=== PATIENT | male | born 1955 | race Caucasian/White ===

== ENCOUNTER 2016-12-07 17:08 | Observation (INO) | payer MEDICAID ==
[~2016-12-07] VITALS: Ht 177.8 cm; Wt 105.2 kg
[~2016-12-07 17:08] MED LIST: ASPI-496 PO; ATOR40TA78 PO; BUPR-86 PO; CARV12.52 PO; CITA10TA4 PO; CLOP75TA PO; FAMO20TA7 PO; GLIP2.5T3 PO; GLIP5TAB10 PO; HYDR-3144 PO; ISOS30TA19 PO; ISOS30TA8 PO; LISI2.5T PO; LORA0.5T PO; LOSA100T2 PO; LOSA25TA5 PO; MAG30ORA PO; METF850T2 PO; NITR0.4T SL; PANT40TA5 PO; PROP10TA PO; RANO500T2 PO; SERT100T PO; SERT100T5 PO; TAMS0.4C2 PO; TRAZ50TA18 PO
[2016-12-07] MEDS ORDERED: ASPIRIN 81 MG TABLET CHEW PO ONE (17:30)
[2016-12-07] MEDS ORDERED: SODIUM CHLORIDE FLUSH 10ML SYR IVF ONE (17:30)
[2016-12-07] MEDS ORDERED: SERT50TA PO (17:50)
[2016-12-07] MEDS ORDERED: GABA100C8 PO (17:50)
[2016-12-07] MEDS ORDERED: LORA1TAB PO (17:50)
[2016-12-07] MEDS ORDERED: ASPIRIN 81 MG TABLET CHEW ONE (17:51)
[2016-12-07 18:07] LABS: BLOOD UREA NITROGEN 14 mg/dL (7-18)
[2016-12-07 18:13] LABS: ASPARTATE AMINO TRANSFERASE 24 U/L (15-37)
[2016-12-07 18:14] LABS: IS PT STATUS REG ER OR PRE ER? YES
[2016-12-07] MEDS ORDERED: ONDANSETRON 2MG/ML, 2ML IVPush ONE (18:30)
[2016-12-07] MEDS ORDERED: NITROGLYCERIN SINGLE TAB 0.4 MG SL ONE ×2 (18:30→18:45)
[2016-12-07] MEDS ORDERED: morphine SULFATE 10 MG/ML, 1ML IVPush ONE (18:30)
[2016-12-07] MEDS ORDERED: ONDANSETRON 2MG/ML, 2ML ONE (18:45)
[2016-12-07] MEDS ORDERED: SODIUM CHLORIDE FLUSH 10ML SYR IVF PRN (20:00)
[2016-12-07] MEDS ORDERED: morphine SULFATE/PF 1 MG/ML, 10ML IVPush ONE (20:30)
[2016-12-07] MEDS ORDERED: MORPHINE SULFATE 4 MG/ML, 1ML ONE (20:36)
[2016-12-07] MEDS ORDERED: GLUCAGON 1 MG IM PRN (21:00)
[2016-12-07] MEDS ORDERED: NITROGLYCERIN 0.4 MG BOTTLE (25 TABS) SL PRN (21:00)
[2016-12-07] MEDS ORDERED: ZOLPIDEM 5MG TABLET PO PRN (21:00)
[2016-12-07] MEDS ORDERED: LABETALOL 5MG/ML 40ML VIAL IVPush PRN (21:00)
[2016-12-07] MEDS ORDERED: DEXTROSE 4 GM TAB.CHEW PO PRN (21:00)
[2016-12-07] MEDS ORDERED: ONDANSETRON 2MG/ML, 2ML IVPush PRN (21:00)
[2016-12-07] MEDS ORDERED: DOCUSATE 100 MG CAPSULE PO PRN (21:00)
[2016-12-07] MEDS ORDERED: ACETAMINOPHEN 325 MG TABLET PO PRN (21:00)
[2016-12-07] MEDS ORDERED: POLYETHYLENE GLYCOL 17 GM PACKET PO PRN (21:00)
[2016-12-07] MEDS ORDERED: DEXTROSE 50%, 50ML SYRINGE IVPush PRN (21:00)
[2016-12-07] MEDS ORDERED: BISACODYL 10 MG SUPP PR PRN (21:00)
[2016-12-07 21:14] VITALS: BP 126/75
[2016-12-07] MEDS: ATORVASTATIN 40 MG TABLET PO SCH (21:31)
[2016-12-07] MEDS: CARVEDILOL 12.5 MG TABLET PO SCH (21:31)
[2016-12-07] MEDS: ENOXAPARIN 40 MG/0.4 ML SQ SCH (22:22)
[2016-12-07] MEDS: SODIUM CHLORIDE 0.9% 1,000 ML IV SCH (22:22)
[2016-12-07] MEDS: SODIUM CHLORIDE FLUSH 10ML SYR IVF SCH (22:22)
[2016-12-07] MEDS: GABAPENTIN 100 MG CAPSULE PO SCH (22:22)
[2016-12-07] MEDS: INSULIN ASPART 100 UNITS/ML, PEN SQ-INSULIN SCH (22:27)
[2016-12-07] MEDS: PANTOPROZOLE 40MG TABLET PO SCH (22:40)
[2016-12-07] MEDS: TAMSULOSIN 0.4 MG CAP.ER.24H PO SCH (22:40)
[2016-12-08] MEDS ORDERED: NITROGLYCERIN 0.4 MG BOTTLE (25 TABS) SL PRN
[2016-12-08 00:13] LABS: IS PT STATUS REG ER OR PRE ER? NO
[2016-12-08] MEDS: morphine SULFATE 10 MG/ML, 1ML IVPush PRN ×3 (00:24→13:00)
[2016-12-08 03:08] VITALS: BP 106/68
[2016-12-08] MEDS: GABAPENTIN 100 MG CAPSULE PO SCH ×4 (06:23→19:58)
[2016-12-08] MEDS: INSULIN ASPART 100 UNITS/ML, PEN SQ-INSULIN SCH ×4 (07:00→20:02)
[2016-12-08 07:21] VITALS: BP 106/66
[2016-12-08] MEDS: SODIUM CHLORIDE 0.9% 1,000 ML IV SCH (08:00)
[2016-12-08 08:11] LABS: BLOOD UREA NITROGEN 14 mg/dL (7-18)
[2016-12-08 08:19] LABS: IS PT STATUS REG ER OR PRE ER? NO
[2016-12-08] MEDS: LOSARTAN 50MG TABLET PO SCH (08:31)
[2016-12-08] MEDS: LORazepam 1MG TABLET PO SCH (08:31)
[2016-12-08] MEDS: CLOPIDOGREL 75 MG TABLET PO SCH (08:31)
[2016-12-08] MEDS: SERTRALINE 50MG TABLET PO SCH (08:31)
[2016-12-08] MEDS: SODIUM CHLORIDE FLUSH 10ML SYR IVF SCH ×2 (08:31→19:58)
[2016-12-08] MEDS: ASPIRIN 81 MG TABLET EC PO SCH (08:31)
[2016-12-08] MEDS: metFORMIN 850 MG TABLET PO SCH (08:31)
[2016-12-08] MEDS: CARVEDILOL 12.5 MG TABLET PO SCH ×2 (08:31→19:58)
[2016-12-08] MEDS: ISOSORBIDE DINITRATE 30 MG TABLET PO SCH (08:31)
[2016-12-08] MEDS: GLIPizide ER 5 MG TABLET PO SCH (08:32)
[2016-12-08] MEDS ORDERED: KETOROLAC 30 MG/1 ML IVPush ONE (16:00)
[2016-12-08] MEDS ORDERED: METHOCARBAMOL 500 MG TABLET PO PRN (16:00)
[2016-12-08 16:33] VITALS: BP 108/67
[2016-12-08 19:46] VITALS: BP 128/74
[2016-12-08] MEDS: TAMSULOSIN 0.4 MG CAP.ER.24H PO SCH (19:58)
[2016-12-08] MEDS: ATORVASTATIN 40 MG TABLET PO SCH (19:58)
[2016-12-08] MEDS: PANTOPROZOLE 40MG TABLET PO SCH (19:59)
[2016-12-08] MEDS ORDERED: KETOROLAC 30 MG/1 ML IVPush PRN (21:30)
[2016-12-08] MEDS: ENOXAPARIN 40 MG/0.4 ML SQ SCH (22:50)
[2016-12-09 02:24] VITALS: BP 115/74
[2016-12-09] MEDS: INSULIN ASPART 100 UNITS/ML, PEN SQ-INSULIN SCH ×3 (07:00→16:00)
[2016-12-09 08:42] VITALS: BP 130/81
[2016-12-09] MEDS: GLIPizide ER 5 MG TABLET PO SCH ×2 (09:00→09:37)
[2016-12-09] MEDS: SODIUM CHLORIDE FLUSH 10ML SYR IVF SCH (09:37)
[2016-12-09] MEDS: SERTRALINE 50MG TABLET PO SCH (09:37)
[2016-12-09] MEDS: ASPIRIN 81 MG TABLET EC PO SCH (09:37)
[2016-12-09] MEDS: CLOPIDOGREL 75 MG TABLET PO SCH (09:37)
[2016-12-09] MEDS: metFORMIN 850 MG TABLET PO SCH ×2 (09:37→09:42)
[2016-12-09] MEDS: LOSARTAN 50MG TABLET PO SCH (09:38)
[2016-12-09] MEDS: GABAPENTIN 100 MG CAPSULE PO SCH ×3 (09:38→16:33)
[2016-12-09] MEDS ORDERED: LITH300T30 PO (09:45)
[2016-12-09] MEDS: ISOSORBIDE DINITRATE 30 MG TABLET PO SCH (09:51)
[2016-12-09] MEDS: CARVEDILOL 12.5 MG TABLET PO SCH (09:51)
[2016-12-09] MEDS: LORazepam 1MG TABLET PO SCH (09:51)
[2016-12-09 14:10] VITALS: BP 122/73
[2016-12-09] MEDS ORDERED: METH500T7 PO (16:52)
== END 2016-12-09 18:44 | disposition home or self-care (01) ==
LOC: SUATTDRO 20:04 → ED 20:30 → 5SO 20:33
DX: R07.9 Chest pain, unspecified (principal); I25.10 Atherosclerotic heart disease of native coronary artery without angina pectoris; E11.9 Type 2 diabetes mellitus without complications; K82.9 Disease of gallbladder, unspecified; E78.5 Hyperlipidemia, unspecified; I11.9 Hypertensive heart disease without heart failure; F41.9 Anxiety disorder, unspecified; F32.9 Major depressive disorder, single episode, unspecified; N40.0 Benign prostatic hyperplasia without lower urinary tract symptoms; M94.0 Chondrocostal junction syndrome [Tietze]; G62.9 Polyneuropathy, unspecified; I25.2 Old myocardial infarction; Z86.73 Personal history of transient ischemic attack (TIA), and cerebral infarction without residual deficits; Z90.49 Acquired absence of other specified parts of digestive tract; Z95.5 Presence of coronary angioplasty implant and graft; Z80.9 Family history of malignant neoplasm, unspecified
CPT/HCPCS: 36415; 71010; 80048; 80053; 82962; 83036; 83880; 84484; 85025; 85379; 93005; 93306; 96361; 96372; 96374; 96375; 96376; 99285; G0378; J1650; J1885; J2270; J2274; J2405; J7030

== ENCOUNTER 2017-12-20 11:42 | Emergency (ER) | payer MEDICARE ==
[~2017-12-20] VITALS: Ht 177.8 cm; Wt 109.6 kg
[~2017-12-20 11:42] MED LIST changes: +GABA-826 PO; -HYDR-3144 PO; +HYDR-3245 PO; -ISOS30TA19 PO; +ISOS30TA21 PO; +LITH300T30 PO; +LORA1TAB PO; +METH500T7 PO; +SERT50TA PO
[2017-12-20] MEDS ORDERED: SODIUM CHLORIDE FLUSH 10ML SYR IVF ONE (12:30)
[2017-12-20 12:48] LABS: BASOPHILS # (AUTO) 0.02 x10^3/uL (0-0.1); BASOPHILS % (AUTO) 0 % (0-1); EOSINOPHILS # (AUTO) 0.23 x10^3/uL (0-0.4); EOSINOPHILS % (AUTO) 4 % (1-7); LYMPHOCYTES # (AUTO) 1.04 x10^3/uL (1-3.4); LYMPHOCYTES % (AUTO) 18 % (22-44); MD NO; MEAN CORPUSCULAR HEMOGLOBIN 30.2 pg (27.5-34.5); MEAN CORPUSCULAR VOLUME 88.9 fL (81-97); MEAN PLATELET VOLUME 7.4 fL (7.4-10.4); MONOCYTES # (AUTO) 0.42 x10^3/uL (0.2-0.8); MONOCYTES % (AUTO) 7 % (2-9); NEUTROPHILS # (AUTO) 3.98 x10^3/uL (1.8-6.8); NEUTROPHILS % (AUTO) 70 % (42-75); PLATELET COUNT 155 x10^3/uL (130-400); RED BLOOD COUNT 4.63 x10^6/uL (4.38-5.82)
[2017-12-20 13:01] LABS: ALANINE AMINOTRANSFERASE 30 U/L (12-78); ALBUMIN 3.9 g/dL (3.4-5.0); ANION GAP 12 mmol/L (5-15); CALCIUM 9.1 mg/dL (8.5-10.1); CHLORIDE 102 mmol/L (98-107); CREATININE 1.51 mg/dL (0.7-1.3)
[2017-12-20 13:05] LABS: ALKALINE PHOSPHATASE 64 U/L (45-117); BILIRUBIN,TOTAL 1.4 mg/dL (0.2-1.0); TOTAL PROTEIN 6.8 g/dL (6.4-8.2); TROPONIN I < 0.015 ng/mL (0.000-0.045)
[2017-12-20 13:19] VITALS: BP 127/81
== END 2017-12-20 14:10 | disposition home or self-care (01) ==
LOC: ED 14:04
DX: L02.31 Cutaneous abscess of buttock (principal); R53.1 Weakness; N28.9 Disorder of kidney and ureter, unspecified; R06.00 Dyspnea, unspecified; R06.02 Shortness of breath; I10 Essential (primary) hypertension; E78.5 Hyperlipidemia, unspecified; F32.9 Major depressive disorder, single episode, unspecified; I25.110 Atherosclerotic heart disease of native coronary artery with unstable angina pectoris; I25.2 Old myocardial infarction; Z90.49 Acquired absence of other specified parts of digestive tract
CPT/HCPCS: 36415; 71045; 80053; 84484; 85025; 93005; 99285

== ENCOUNTER 2018-02-26 20:22 | Inpatient (IN) | payer MEDICAID, MEDICARE ==
[~2018-02-26] VITALS: Ht 177.8 cm; Wt 108.4 kg
[~2018-02-26 20:22] MED LIST changes: +TRAZ-136 PO; -TRAZ50TA18 PO
[2018-02-26] MEDS ORDERED: NITROGLYCERIN OINT 2%, 1GM TP ONE ×2 (20:49→21:30)
[2018-02-26] MEDS ORDERED: ASPIRIN 81 MG TABLET CHEW ONE (20:49)
[2018-02-26] MEDS ORDERED: SODIUM CHLORIDE FLUSH 10ML SYR IVF ONE (21:00)
[2018-02-26 21:25] LABS: BASOPHILS # (AUTO) 0.02 x10^3/uL (0-0.1); BASOPHILS % (AUTO) 1 % (0-1); EOSINOPHILS # (AUTO) 0.27 x10^3/uL (0-0.4); EOSINOPHILS % (AUTO) 6 % (1-7); LYMPHOCYTES # (AUTO) 1.26 x10^3/uL (1-3.4); LYMPHOCYTES % (AUTO) 27 % (22-44); MD NO; MEAN CORPUSCULAR HEMOGLOBIN 31.4 pg (27.5-34.5); MEAN CORPUSCULAR HGB CONC 34.8 g/dL (33.2-36.2); MEAN CORPUSCULAR VOLUME 90.1 fL (81-97); MEAN PLATELET VOLUME 7.7 fL (7.4-10.4); MONOCYTES # (AUTO) 0.38 x10^3/uL (0.2-0.8); MONOCYTES % (AUTO) 8 % (2-9); NEUTROPHILS % (AUTO) 59 % (42-75); PLATELET COUNT 129 x10^3/uL (130-400); RED BLOOD COUNT 4.44 x10^6/uL (4.38-5.82)
[2018-02-26] MEDS ORDERED: MORPHINE SULFATE 4 MG/ML, 1ML ONE (21:27)
[2018-02-26] MEDS ORDERED: ONDANSETRON ODT 4 MG ONE (21:27)
[2018-02-26] MEDS ORDERED: ASPIRIN 81 MG TABLET CHEW PO ONE (21:30)
[2018-02-26 21:38] LABS: ALANINE AMINOTRANSFERASE 29 U/L (12-78); ALBUMIN 3.8 g/dL (3.4-5.0); ANION GAP 5 mmol/L (5-15); CHLORIDE 108 mmol/L (98-107)
[2018-02-26 21:43] LABS: ALKALINE PHOSPHATASE 56 U/L (45-117); BILIRUBIN,TOTAL 1.1 mg/dL (0.2-1.0); CREATININE 1.19 mg/dL (0.7-1.3); TOTAL PROTEIN 6.6 g/dL (6.4-8.2); TROPONIN I < 0.015 ng/mL (0.000-0.045)
[2018-02-26] MEDS ORDERED: morphine SULFATE 10 MG/ML, 1ML IVPush ONE (22:30)
[2018-02-26] MEDS ORDERED: ONDANSETRON ODT 4 MG PO ONE (22:30)
[2018-02-26 23:35] VITALS: BP 163/90
[2018-02-27] MEDS ORDERED: NITROGLYCERIN 0.4 MG/SPRAY SL PRN (00:30)
[2018-02-27] MEDS ORDERED: NITROGLYCERIN 0.4 MG BOTTLE (25 TABS) SL PRN (00:30)
[2018-02-27 00:40] VITALS: BP 119/69
[2018-02-27 01:47] VITALS: BP 119/71
[2018-02-27] MEDS ORDERED: KETOROLAC 30 MG/1 ML IV PRN (02:00)
[2018-02-27] MEDS ORDERED: METHOCARBAMOL 500 MG TABLET PO PRN (02:00)
[2018-02-27] MEDS: ENOXAPARIN 30 MG/0.3 ML SQ SCH ×2 (02:29→13:26)
[2018-02-27] MEDS: GABAPENTIN 100 MG CAPSULE PO SCH ×4 (06:00→21:01)
[2018-02-27 07:48] VITALS: BP 132/75
[2018-02-27] MEDS: ASPIRIN 81 MG TABLET EC PO SCH (08:30)
[2018-02-27] MEDS: LOSARTAN 50MG TABLET PO SCH (08:30)
[2018-02-27] MEDS: LORazepam 1MG TABLET PO SCH (08:30)
[2018-02-27] MEDS: CLOPIDOGREL 75 MG TABLET PO SCH (08:30)
[2018-02-27] MEDS: CARVEDILOL 12.5 MG TABLET PO SCH ×2 (08:31→21:01)
[2018-02-27] MEDS: ISOSORBIDE DINITRATE 30 MG TABLET PO SCH (08:31)
[2018-02-27] MEDS: SERTRALINE 50MG TABLET PO SCH (08:33)
[2018-02-27 09:32] LABS: ALBUMIN 3.5 g/dL (3.4-5.0); ANION GAP 7 mmol/L (5-15); CALCIUM 8.6 mg/dL (8.5-10.1); CHLORIDE 108 mmol/L (98-107)
[2018-02-27 09:39] LABS: ALANINE AMINOTRANSFERASE 28 U/L (12-78); ALKALINE PHOSPHATASE 52 U/L (45-117); CREATININE 1.15 mg/dL (0.7-1.3); TOTAL PROTEIN 6.2 g/dL (6.4-8.2); TROPONIN I < 0.015 ng/mL (0.000-0.045)
[2018-02-27 13:16] VITALS: BP 116/70
[2018-02-27 15:12] LABS: TROPONIN I < 0.015 ng/mL (0.000-0.045)
[2018-02-27 20:35] VITALS: BP 132/72
[2018-02-27] MEDS ORDERED: PANTOPROZOLE 40MG TABLET PO SCH (21:00)
[2018-02-27] MEDS ORDERED: TRAZODONE 50MG TABLET PO PRN (21:00)
[2018-02-27] MEDS ORDERED: ATORVASTATIN 40 MG TABLET PO SCH (21:00)
[2018-02-27] MEDS ORDERED: TAMSULOSIN 0.4 MG CAP.ER.24H PO SCH (21:00)
[2018-02-27] MEDS: INSULIN LISPRO 100 UNITS/ML, PEN SQ-INSULIN SCH (23:30)
[2018-02-28 00:14] VITALS: BP 116/68
[2018-02-28] MEDS: ENOXAPARIN 30 MG/0.3 ML SQ SCH ×2 (02:46→14:00)
[2018-02-28] MEDS: GABAPENTIN 100 MG CAPSULE PO SCH ×3 (05:10→15:23)
[2018-02-28 05:47] LABS: BASOPHILS # (AUTO) 0.02 x10^3/uL (0-0.1); BASOPHILS % (AUTO) 0 % (0-1); EOSINOPHILS # (AUTO) 0.23 x10^3/uL (0-0.4); EOSINOPHILS % (AUTO) 5 % (1-7); LYMPHOCYTES # (AUTO) 1.21 x10^3/uL (1-3.4); LYMPHOCYTES % (AUTO) 28 % (22-44); MD NO; MEAN CORPUSCULAR HEMOGLOBIN 31.1 pg (27.5-34.5); MEAN CORPUSCULAR HGB CONC 34.3 g/dL (33.2-36.2); MEAN CORPUSCULAR VOLUME 90.6 fL (81-97); MEAN PLATELET VOLUME 7.4 fL (7.4-10.4); MONOCYTES # (AUTO) 0.33 x10^3/uL (0.2-0.8); MONOCYTES % (AUTO) 8 % (2-9); NEUTROPHILS # (AUTO) 2.59 x10^3/uL (1.8-6.8); NEUTROPHILS % (AUTO) 59 % (42-75); PLATELET COUNT 116 x10^3/uL (130-400); RED CELL DISTRIBUTION WIDTH 13.8 % (9.4-14.8)
[2018-02-28 06:52] VITALS: BP 139/79
[2018-02-28] MEDS: INSULIN LISPRO 100 UNITS/ML, PEN SQ-INSULIN SCH ×3 (08:36→16:39)
[2018-02-28] MEDS: LORazepam 1MG TABLET PO SCH (08:45)
[2018-02-28] MEDS: CLOPIDOGREL 75 MG TABLET PO SCH (08:47)
[2018-02-28] MEDS: ASPIRIN 81 MG TABLET EC PO SCH (08:47)
[2018-02-28] MEDS: ISOSORBIDE DINITRATE 30 MG TABLET PO SCH (08:47)
[2018-02-28] MEDS: CARVEDILOL 12.5 MG TABLET PO SCH (08:47)
[2018-02-28] MEDS: SERTRALINE 50MG TABLET PO SCH (08:47)
[2018-02-28] MEDS: LOSARTAN 50MG TABLET PO SCH (08:47)
[2018-02-28 12:57] VITALS: BP 138/78
== END 2018-02-28 18:33 | disposition home or self-care (01) | DRG 303 ==
LOC: ED 20:50 → 5SO 22:55
PROVIDERS: ADMIT Internal Medicine; ATTEND Internal Medicine
DX: I25.10 Atherosclerotic heart disease of native coronary artery without angina pectoris (principal); R17 Unspecified jaundice; I11.9 Hypertensive heart disease without heart failure; E11.42 Type 2 diabetes mellitus with diabetic polyneuropathy; F32.9 Major depressive disorder, single episode, unspecified; F41.9 Anxiety disorder, unspecified; G47.30 Sleep apnea, unspecified; N40.0 Benign prostatic hyperplasia without lower urinary tract symptoms; K21.9 Gastro-esophageal reflux disease without esophagitis; E78.5 Hyperlipidemia, unspecified; E66.9 Obesity, unspecified; D69.6 Thrombocytopenia, unspecified; Z90.49 Acquired absence of other specified parts of digestive tract; Z95.5 Presence of coronary angioplasty implant and graft; I25.2 Old myocardial infarction; Z86.73 Personal history of transient ischemic attack (TIA), and cerebral infarction without residual deficits; Z68.34 Body mass index [BMI] 34.0-34.9, adult; Z79.82 Long term (current) use of aspirin
CPT/HCPCS: 36415; 71045; 80053; 82962; 83690; 84443; 84484; 85025; 85379; 93005; 96374; J1650; J1885; Q0162; J1815; J2270

== ENCOUNTER 2018-06-02 17:45 | Emergency (ER) | payer MEDICAID, MEDICARE ==
[~2018-06-02] VITALS: Ht 177.8 cm; Wt 105.0 kg
[~2018-06-02 17:45] MED LIST changes: -LOSA25TA5 PO; +LOSA25TA6 PO; +METF850T10 PO; -METF850T2 PO
[2018-06-02] MEDS ORDERED: SODIUM CHLORIDE FLUSH 10ML SYR IVF ONE (18:00)
[2018-06-02] MEDS ORDERED: PLEASE ENTER HEIGHT AND WEIGHT MC SCH (18:00)
[2018-06-02 18:32] LABS: BASOPHILS # (AUTO) 0.03 x10^3/uL (0-0.1); BASOPHILS % (AUTO) 1 % (0-1); EOSINOPHILS # (AUTO) 0.53 x10^3/uL (0-0.4); EOSINOPHILS % (AUTO) 10 % (1-7); LYMPHOCYTES # (AUTO) 1.68 x10^3/uL (1-3.4); LYMPHOCYTES % (AUTO) 30 % (22-44); MD NO; MEAN CORPUSCULAR HEMOGLOBIN 31.3 pg (27.5-34.5); MEAN CORPUSCULAR HGB CONC 34.4 g/dL (33.2-36.2); MEAN CORPUSCULAR VOLUME 90.8 fL (81-97); MONOCYTES # (AUTO) 0.38 x10^3/uL (0.2-0.8); MONOCYTES % (AUTO) 7 % (2-9); NEUTROPHILS # (AUTO) 2.91 x10^3/uL (1.8-6.8); NEUTROPHILS % (AUTO) 53 % (42-75); PLATELET COUNT 163 x10^3/uL (130-400); RED BLOOD COUNT 4.47 x10^6/uL (4.38-5.82); RED CELL DISTRIBUTION WIDTH 14.3 % (9.4-14.8)
[2018-06-02 18:44] LABS: ALBUMIN 3.5 g/dL (3.4-5.0); ANION GAP 11 mmol/L (5-15); CALCIUM 8.8 mg/dL (8.5-10.1); CHLORIDE 109 mmol/L (98-107)
[2018-06-02 18:49] LABS: ALKALINE PHOSPHATASE 63 U/L (45-117); CREATININE 0.99 mg/dL (0.7-1.3); TOTAL PROTEIN 6.6 g/dL (6.4-8.2); TROPONIN I < 0.015 ng/mL (0.000-0.045)
[2018-06-02 18:55] LABS: ALANINE AMINOTRANSFERASE 29 U/L (12-78)
[2018-06-02] MEDS ORDERED: LORazepam 1MG TABLET ONE (18:56)
[2018-06-02] MEDS ORDERED: LORazepam 1MG TABLET PO ONE (19:00)
[2018-06-02 21:01] VITALS: BP 129/66
== END 2018-06-02 21:13 | disposition home or self-care (01) ==
LOC: ED 19:07
DX: R07.89 Other chest pain (principal); R11.2 Nausea with vomiting, unspecified; I25.10 Atherosclerotic heart disease of native coronary artery without angina pectoris; I25.2 Old myocardial infarction; E78.5 Hyperlipidemia, unspecified; E11.9 Type 2 diabetes mellitus without complications; I10 Essential (primary) hypertension
CPT/HCPCS: 36415; 71045; 80053; 83690; 83880; 84484; 85025; 93005; 99285

== ENCOUNTER 2018-10-19 07:34 | Inpatient (IN) | payer MEDICARE, MEDICAID ==
[~2018-10-19] VITALS: Ht 177.8 cm; Wt 109.7 kg
[~2018-10-19 07:34] MED LIST changes: +LOSA25TA25 PO; -LOSA25TA6 PO; -PROP10TA PO; +PROP10TA16 PO; +SERT100T32 PO; -SERT100T5 PO; -TRAZ-136 PO; +TRAZ50TA66 PO
--- NOTE | 2018-10-19 07:34 | NUR ---
QUINN from home c/o SOB, dizziness, NV, "I don't feel good, I think I had a stroke last night. I didn't come in because I didn't want to. 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 sitter in view.
[2018-10-19] MEDS ORDERED: LORazepam 1MG TABLET PO ONE (08:00)
[2018-10-19] MEDS ORDERED: LORazepam 1MG TABLET ONE (08:14)
--- NOTE | 2018-10-19 08:25 | NUR ---
pt valuables given to security- receipt placed in chart; remaining pt belongings in bags x2 placed in locker.
[2018-10-19 08:27] LABS: BASOPHILS # (AUTO) 0.04 x10^3/uL (0-0.1); BASOPHILS % (AUTO) 1 % (0-1); EOSINOPHILS # (AUTO) 0.21 x10^3/uL (0-0.4); EOSINOPHILS % (AUTO) 4 % (1-7); LYMPHOCYTES # (AUTO) 1.23 x10^3/uL (1-3.4); LYMPHOCYTES % (AUTO) 20 % (22-44); MD NO; MEAN CORPUSCULAR HGB CONC 34.7 g/dL (33.2-36.2); MEAN CORPUSCULAR VOLUME 89.2 fL (81-97); MEAN PLATELET VOLUME 6.7 fL (7.4-10.4); MONOCYTES # (AUTO) 0.33 x10^3/uL (0.2-0.8); MONOCYTES % (AUTO) 5 % (2-9); NEUTROPHILS # (AUTO) 4.25 x10^3/uL (1.8-6.8); NEUTROPHILS % (AUTO) 70 % (42-75); PLATELET COUNT 207 x10^3/uL (130-400); RED BLOOD COUNT 4.28 x10^6/uL (4.38-5.82); RED CELL DISTRIBUTION WIDTH 14.3 % (9.4-14.8)
[2018-10-19 08:39] LABS: ALANINE AMINOTRANSFERASE 41 U/L (12-78); ALBUMIN 3.7 g/dL (3.4-5.0); ANION GAP 15 mmol/L (5-15); CALCIUM 8.4 mg/dL (8.5-10.1); CHLORIDE 97 mmol/L (98-107); CREATININE 1.58 mg/dL (0.7-1.3)
[2018-10-19 08:40] LABS: AMPHETAMINE SCREEN, URINE Negative (Negative); BARBITURATE SCREEN, URINE Negative (Negative); BENZODIAZEPINE SCREEN, URINE Negative (Negative); CANNABINOID SCREEN, URINE Negative (Negative); COCAINE SCREEN, URINE Negative (Negative); METHADONE SCREEN, URINE Negative (Negative); OPIATE SCREEN, URINE Negative (Negative)
[2018-10-19 08:44] LABS: ACETAMINOPHEN < 2 mcg/mL (10-30); ALKALINE PHOSPHATASE 61 U/L (45-117); BILIRUBIN,TOTAL 2.2 mg/dL (0.2-1.0); SALICYLATE LEVEL < 1.7 mg/dL (2.8-20.0); TOTAL PROTEIN 6.2 g/dL (6.4-8.2); TROPONIN I < 0.015 ng/mL (0.000-0.045)
[2018-10-19] MEDS ORDERED: SODIUM CHLORIDE 0.9% 1,000ML IVBOLUS ONE ×2 (09:00→10:00)
--- NOTE | 2018-10-19 09:03 | NUR ---
pt upright on gurney awake & moaning but will not elaborate on reason but otherwise cooperative, NAD/VSS, PA aware of pt status, comfort measures provided, sitter in view.
--- NOTE | 2018-10-19 09:50 | NUR ---
pt transferred to room 40 from Tr01 for pt safety, will continue to monitor VS.
[2018-10-19] MEDS ORDERED: LORazepam 2 MG/ML, 1ML IVPush ONE (10:00)
[2018-10-19 10:01] LABS: ACETONE, SERUM Negative (Negative)
--- NOTE | 2018-10-19 10:02 | NUR ---
pt remains upright on gurney awake & moaning stating "I don't feel like myself, very strange, not taking my meds didn't work out for me" but otherwise cooperative, NAD/VSS, PA aware of pt status, comfort measures provided, pt remains in safe environment, sitter in view.
[2018-10-19] MEDS ORDERED: LORazepam 2 MG/ML, 1ML ONE (10:04)
--- NOTE | 2018-10-19 10:13 | NUR ---
ERP updated pt on POC
[2018-10-19] MEDS ORDERED: TRAZ50TA66 PO (10:36)
[2018-10-19] MEDS ORDERED: ALBU18HF INH (10:36)
[2018-10-19] MEDS ORDERED: MIRT15TA4 PO (10:36)
[2018-10-19] MEDS ORDERED: FLUT1AER7 INH (10:36)
[2018-10-19] MEDS ORDERED: BUSP10TA PO (10:36)
[2018-10-19] MEDS ORDERED: PANTOPRAZOLE 40 MG IV ONE (10:56)
[2018-10-19] MEDS ORDERED: THIAMINE 100MG TABLET ONE (10:56)
--- NOTE | 2018-10-19 10:56 | NUR ---
CT ON HOLD; RN AWARE
[2018-10-19] MEDS ORDERED: ONDANSETRON ODT 4 MG PO PRN (11:00)
[2018-10-19] MEDS ORDERED: LABETALOL 5MG/ML, 20ML IVPush PRN (11:00)
[2018-10-19] MEDS ORDERED: LORazepam 1MG TABLET PO PRN ×4 (11:00)
[2018-10-19] MEDS ORDERED: LORazepam 2 MG/ML, 1ML IV PRN ×5 (11:00)
--- NOTE | 2018-10-19 11:00 | NUR ---
pt upright on gurney awake, moaning & cooperative, NAD/VSS, comfort measures provided, pt remains in safe environment, sitter in view.
[2018-10-19] MEDS: THIAMINE 100MG TABLET PO SCH (11:06)
[2018-10-19] MEDS: PANTOPRAZOLE 40 MG IV IVPush SCH (11:06)
[2018-10-19 11:07] LABS: FREE T4 (FREE THYROXINE) 1.28 ng/dL (0.76-1.46)
--- NOTE | 2018-10-19 11:13 | NUR ---
[facility] at for consult
--- NOTE | 2018-10-19 11:35 | NUR ---
Pt to be admitted to [facility], room 490-2. Report called to Fabiana.
[2018-10-19] MEDS: FOLIC ACID 1 MG TABLET PO SCH (11:41)
[2018-10-19] MEDS ORDERED: GLUCAGON 1 MG IM PRN (12:00)
[2018-10-19] MEDS ORDERED: DEXTROSE 4 GM TAB.CHEW PO PRN (12:00)
[2018-10-19] MEDS ORDERED: DEXTROSE 50%, 50ML SYRINGE IVPush PRN (12:00)
[2018-10-19 12:25] VITALS: BP 117/69
[2018-10-19 12:53] LABS: HEMOGLOBIN A1C 6.3 % (4.2-6.3)
[2018-10-19 13:07] LABS: ALBUMIN 3.4 g/dL (3.4-5.0); ANION GAP 12 mmol/L (5-15); CHLORIDE 104 mmol/L (98-107); CREATININE 1.28 mg/dL (0.7-1.3)
[2018-10-19] MEDS: SODIUM CHLORIDE 0.9% 1,000 ML IV SCH ×2 (13:38→23:45)
[2018-10-19 14:27] VITALS: BP 145/76
[2018-10-19 17:00] LABS: TROPONIN I < 0.015 ng/mL (0.000-0.045)
[2018-10-19] MEDS: GABAPENTIN 100 MG CAPSULE PO PRN (17:08)
[2018-10-19] MEDS: INSULIN LISPRO 100 UNITS/ML, PEN SQ-INSULIN SCH ×2 (17:11→21:00)
[2018-10-19 20:00] VITALS: BP 151/75
[2018-10-19] MEDS: ATORVASTATIN 10 MG TABLET PO SCH (20:09)
[2018-10-19] MEDS: MIRTAZAPINE 15 MG TABLET PO SCH (20:09)
[2018-10-19] MEDS: BUSPIRONE 10 MG TABLET PO SCH (20:09)
[2018-10-19] MEDS: CARVEDILOL 12.5 MG TABLET PO SCH (20:10)
[2018-10-19] MEDS: SODIUM CHLORIDE FLUSH 10ML SYR IVF SCH (20:11)
[2018-10-20 02:20] VITALS: BP 128/65
[2018-10-20 05:43] LABS: ALBUMIN 3.4 g/dL (3.4-5.0); CALCIUM 8.2 mg/dL (8.5-10.1)
[2018-10-20 05:54] LABS: ALANINE AMINOTRANSFERASE 33 U/L (12-78); ALKALINE PHOSPHATASE 45 U/L (45-117); ANION GAP 6 mmol/L (5-15); BILIRUBIN,TOTAL 1.8 mg/dL (0.2-1.0); CREATININE 1.13 mg/dL (0.7-1.3); TOTAL PROTEIN 5.6 g/dL (6.4-8.2)
[2018-10-20 05:56] LABS: CHLORIDE 112 mmol/L (98-107)
[2018-10-20 06:03] LABS: BASOPHILS # (AUTO) 0.01 x10^3/uL (0-0.1); BASOPHILS % (AUTO) 0 % (0-1); EOSINOPHILS # (AUTO) 0.13 x10^3/uL (0-0.4); EOSINOPHILS % (AUTO) 3 % (1-7); LYMPHOCYTES # (AUTO) 0.74 x10^3/uL (1-3.4); LYMPHOCYTES % (AUTO) 19 % (22-44); MD NO; MEAN CORPUSCULAR HEMOGLOBIN 31.2 pg (27.5-34.5); MEAN CORPUSCULAR HGB CONC 34.7 g/dL (33.2-36.2); MEAN PLATELET VOLUME 6.8 fL (7.4-10.4); MONOCYTES # (AUTO) 0.31 x10^3/uL (0.2-0.8); MONOCYTES % (AUTO) 8 % (2-9); NEUTROPHILS # (AUTO) 2.66 x10^3/uL (1.8-6.8); NEUTROPHILS % (AUTO) 69 % (42-75); PLATELET COUNT 134 x10^3/uL (130-400); RED BLOOD COUNT 3.85 x10^6/uL (4.38-5.82); RED CELL DISTRIBUTION WIDTH 14.6 % (9.4-14.8)
[2018-10-20] MEDS: DEXTROSE 5% 1,000 ML IV SCH ×2 (06:35→20:40)
[2018-10-20] MEDS: PANTOPRAZOLE 40 MG IV IVPush SCH (07:25)
[2018-10-20] MEDS: INSULIN LISPRO 100 UNITS/ML, PEN SQ-INSULIN SCH ×4 (07:26→20:32)
[2018-10-20 08:48] VITALS: BP 148/84
[2018-10-20] MEDS: THIAMINE 100MG TABLET PO SCH (08:51)
[2018-10-20] MEDS: FOLIC ACID 1 MG TABLET PO SCH (08:51)
[2018-10-20] MEDS: CLOPIDOGREL 75 MG TABLET PO SCH (08:51)
[2018-10-20] MEDS: ASPIRIN 81 MG TABLET EC PO SCH (08:51)
[2018-10-20] MEDS: BUSPIRONE 10 MG TABLET PO SCH ×2 (08:51→20:40)
[2018-10-20] MEDS: CARVEDILOL 12.5 MG TABLET PO SCH ×2 (08:52→20:40)
[2018-10-20] MEDS: SODIUM CHLORIDE FLUSH 10ML SYR IVF SCH ×2 (08:53→20:41)
[2018-10-20] MEDS: ISOSORBIDE DINITRATE 30 MG TABLET PO SCH (08:53)
[2018-10-20] MEDS: ONDANSETRON 2MG/ML, 2ML IVPush PRN ×2 (10:47→21:52)
[2018-10-20] MEDS: LORazepam 0.5MG TABLET PO PRN ×3 (10:58→21:02)
[2018-10-20 11:46] LABS: ALBUMIN 3.2 g/dL (3.4-5.0); ANION GAP 6 mmol/L (5-15); CALCIUM 8.2 mg/dL (8.5-10.1); CHLORIDE 110 mmol/L (98-107); CREATININE 1.02 mg/dL (0.7-1.3)
[2018-10-20 15:08] VITALS: BP 154/82
[2018-10-20 16:00] LABS: ANION GAP 9 mmol/L (5-15); CALCIUM 8.6 mg/dL (8.5-10.1); CHLORIDE 110 mmol/L (98-107)
[2018-10-20 16:01] LABS: CREATININE 1.12 mg/dL (0.7-1.3)
[2018-10-20] MEDS: NICOTINE 14MG/24 HR PATCH.TD24 TD SCH (16:27)
[2018-10-20 19:44] VITALS: BP 150/83
[2018-10-20] MEDS: TAMSULOSIN 0.4 MG CAP.ER.24H PO SCH (20:39)
[2018-10-20] MEDS: ATORVASTATIN 10 MG TABLET PO SCH (20:39)
[2018-10-20] MEDS: MIRTAZAPINE 15 MG TABLET PO SCH (20:40)
[2018-10-20] MEDS: GABAPENTIN 100 MG CAPSULE PO PRN (21:02)
[2018-10-21 00:37] VITALS: BP 155/80
[2018-10-21] MEDS: TRAZODONE 100MG TABLET PO PRN (02:17)
[2018-10-21] MEDS: LORazepam 0.5MG TABLET PO PRN ×2 (02:18→10:55)
[2018-10-21 05:23] LABS: BASOPHILS # (AUTO) 0.03 x10^3/uL (0-0.1); BASOPHILS % (AUTO) 1 % (0-1); EOSINOPHILS # (AUTO) 0.11 x10^3/uL (0-0.4); EOSINOPHILS % (AUTO) 4 % (1-7); LYMPHOCYTES # (AUTO) 0.81 x10^3/uL (1-3.4); LYMPHOCYTES % (AUTO) 27 % (22-44); MD NO; MEAN CORPUSCULAR HEMOGLOBIN 31.3 pg (27.5-34.5); MEAN CORPUSCULAR HGB CONC 34.4 g/dL (33.2-36.2); MEAN CORPUSCULAR VOLUME 90.9 fL (81-97); MEAN PLATELET VOLUME 7.3 fL (7.4-10.4); MONOCYTES # (AUTO) 0.23 x10^3/uL (0.2-0.8); MONOCYTES % (AUTO) 8 % (2-9); NEUTROPHILS # (AUTO) 1.87 x10^3/uL (1.8-6.8); NEUTROPHILS % (AUTO) 61 % (42-75); PLATELET COUNT 116 x10^3/uL (130-400)
[2018-10-21 05:25] LABS: ALBUMIN 3.2 g/dL (3.4-5.0); ANION GAP 6 mmol/L (5-15); CALCIUM 8.2 mg/dL (8.5-10.1); CHLORIDE 110 mmol/L (98-107)
[2018-10-21 05:33] LABS: ALANINE AMINOTRANSFERASE 29 U/L (12-78); ALKALINE PHOSPHATASE 61 U/L (45-117); BILIRUBIN,TOTAL 1.1 mg/dL (0.2-1.0); TOTAL PROTEIN 5.5 g/dL (6.4-8.2)
[2018-10-21] MEDS: PANTOPROZOLE 40MG TABLET PO SCH (05:45)
[2018-10-21] MEDS: FOLIC ACID 1 MG TABLET PO SCH (08:36)
[2018-10-21] MEDS: THIAMINE 100MG TABLET PO SCH (08:36)
[2018-10-21] MEDS: BUSPIRONE 10 MG TABLET PO SCH ×2 (08:36→20:21)
[2018-10-21] MEDS: ISOSORBIDE DINITRATE 30 MG TABLET PO SCH (08:36)
[2018-10-21] MEDS: CARVEDILOL 12.5 MG TABLET PO SCH ×2 (08:36→20:21)
[2018-10-21] MEDS: CLOPIDOGREL 75 MG TABLET PO SCH (08:36)
[2018-10-21] MEDS: ASPIRIN 81 MG TABLET EC PO SCH (08:36)
[2018-10-21] MEDS: INSULIN LISPRO 100 UNITS/ML, PEN SQ-INSULIN SCH ×4 (08:37→20:20)
[2018-10-21] MEDS: DEXTROSE 5% 1,000 ML IV SCH ×2 (08:42→22:58)
[2018-10-21] MEDS: SODIUM CHLORIDE FLUSH 10ML SYR IVF SCH ×2 (08:42→20:25)
[2018-10-21 09:00] VITALS: BP 127/70
[2018-10-21 14:56] VITALS: BP 136/76
[2018-10-21] MEDS: NICOTINE 14MG/24 HR PATCH.TD24 TD SCH ×2 (16:00→20:24)
[2018-10-21] MEDS: ONDANSETRON 2MG/ML, 2ML IVPush PRN (16:59)
[2018-10-21 18:04] LABS: CLOSTRIDIUM DIFFICILE ANTIGEN NEGATIVE; CLOSTRIDIUM DIFFICILE TOXIN NEGATIVE (Negative)
[2018-10-21 20:00] VITALS: BP 159/79
[2018-10-21] MEDS: TAMSULOSIN 0.4 MG CAP.ER.24H PO SCH (20:21)
[2018-10-21] MEDS: GABAPENTIN 100 MG CAPSULE PO PRN (20:21)
[2018-10-21] MEDS: MIRTAZAPINE 15 MG TABLET PO SCH (20:22)
[2018-10-21] MEDS: ATORVASTATIN 10 MG TABLET PO SCH (20:22)
[2018-10-22] MEDS: TRAZODONE 100MG TABLET PO PRN ×2 (01:06→22:07)
[2018-10-22 01:08] VITALS: BP 159/82
[2018-10-22 05:11] VITALS: BP 164/98
[2018-10-22] MEDS: PANTOPROZOLE 40MG TABLET PO SCH (05:12)
[2018-10-22] MEDS: LORazepam 0.5MG TABLET PO PRN ×3 (05:57→22:12)
[2018-10-22 06:50] LABS: TROPONIN I < 0.015 ng/mL (0.000-0.045)
[2018-10-22] MEDS: INSULIN LISPRO 100 UNITS/ML, PEN SQ-INSULIN SCH ×4 (07:00→22:08)
[2018-10-22 08:02] VITALS: BP 100/64
[2018-10-22] MEDS: CARVEDILOL 12.5 MG TABLET PO SCH ×2 (08:49→21:00)
[2018-10-22 09:50] VITALS: BP 147/83
[2018-10-22] MEDS: SODIUM CHLORIDE FLUSH 10ML SYR IVF SCH ×2 (09:53→22:15)
[2018-10-22] MEDS: BUSPIRONE 10 MG TABLET PO SCH ×2 (09:53→22:06)
[2018-10-22] MEDS: ISOSORBIDE DINITRATE 30 MG TABLET PO SCH (09:54)
[2018-10-22] MEDS: CLOPIDOGREL 75 MG TABLET PO SCH (09:54)
[2018-10-22] MEDS: THIAMINE 100MG TABLET PO SCH (09:54)
[2018-10-22] MEDS: ASPIRIN 81 MG TABLET EC PO SCH (09:55)
[2018-10-22] MEDS: FOLIC ACID 1 MG TABLET PO SCH (09:55)
[2018-10-22] MEDS: DEXTROSE 5% 1,000 ML IV SCH (11:59)
[2018-10-22 12:25] LABS: TROPONIN I < 0.015 ng/mL (0.000-0.045)
[2018-10-22 12:32] VITALS: BP 111/78
[2018-10-22] MEDS: NICOTINE 14MG/24 HR PATCH.TD24 TD SCH (17:19)
[2018-10-22 18:21] LABS: TROPONIN I < 0.015 ng/mL (0.000-0.045)
[2018-10-22 19:32] VITALS: BP 139/81
[2018-10-22] MEDS: ATORVASTATIN 10 MG TABLET PO SCH (22:05)
[2018-10-22] MEDS: GABAPENTIN 100 MG CAPSULE PO PRN (22:06)
[2018-10-22] MEDS: TAMSULOSIN 0.4 MG CAP.ER.24H PO SCH (22:11)
[2018-10-22] MEDS: MIRTAZAPINE 15 MG TABLET PO SCH (22:14)
[2018-10-22] MEDS: ONDANSETRON 2MG/ML, 2ML IVPush PRN (22:57)
[2018-10-22] MEDS ORDERED: NITR0.6T4 SL (23:26)
[2018-10-23] MEDS ORDERED: NITROGLYCERIN 0.4 MG BOTTLE (25 TABS) SL PRN
[2018-10-23] MEDS: GABAPENTIN 100 MG CAPSULE PO PRN (00:17)
[2018-10-23] MEDS ORDERED: KETOROLAC 30 MG/1 ML IVPush ONE (01:00)
[2018-10-23 01:10] VITALS: BP 122/73
[2018-10-23] MEDS: DEXTROSE 5% 1,000 ML IV SCH (01:24)
[2018-10-23 07:26] VITALS: BP 145/82
[2018-10-23] MEDS: CARVEDILOL 12.5 MG TABLET PO SCH (09:00)
[2018-10-23] MEDS ORDERED: LOSARTAN 50MG TABLET PO SCH (09:00)
[2018-10-23] MEDS: INSULIN LISPRO 100 UNITS/ML, PEN SQ-INSULIN SCH ×2 (09:32→13:11)
[2018-10-23] MEDS: SODIUM CHLORIDE FLUSH 10ML SYR IVF SCH (09:33)
[2018-10-23] MEDS: BUSPIRONE 10 MG TABLET PO SCH (09:33)
[2018-10-23] MEDS: THIAMINE 100MG TABLET PO SCH (09:33)
[2018-10-23] MEDS: CLOPIDOGREL 75 MG TABLET PO SCH (09:34)
[2018-10-23] MEDS: FOLIC ACID 1 MG TABLET PO SCH (09:34)
[2018-10-23] MEDS: ISOSORBIDE DINITRATE 30 MG TABLET PO SCH (09:34)
[2018-10-23] MEDS: PANTOPROZOLE 40MG TABLET PO SCH (09:34)
[2018-10-23] MEDS: ASPIRIN 81 MG TABLET EC PO SCH (09:34)
[2018-10-23 12:45] VITALS: BP 145/72
== END 2018-10-23 16:33 | disposition home or self-care (01) | DRG 432 ==
LOC: ED 09:25 → EDIP 10:14 → 4EST 12:03 → 4WST 12:30 → 4EST 12:31 → DCLOUNGE 10-23 16:25
PROVIDERS: ADMIT Hospitalist; ATTEND Hospitalist
DX: K70.10 Alcoholic hepatitis without ascites (principal); N17.0 Acute kidney failure with tubular necrosis; E87.1 Hypo-osmolality and hyponatremia; E87.2 Acidosis; R45.851 Suicidal ideations; E11.9 Type 2 diabetes mellitus without complications; E78.5 Hyperlipidemia, unspecified; E86.0 Dehydration; E86.1 Hypovolemia; F10.229 Alcohol dependence with intoxication, unspecified; F41.1 Generalized anxiety disorder; F41.8 Other specified anxiety disorders; G89.29 Other chronic pain; I11.9 Hypertensive heart disease without heart failure; I25.10 Atherosclerotic heart disease of native coronary artery without angina pectoris; I25.2 Old myocardial infarction; K21.9 Gastro-esophageal reflux disease without esophagitis; K76.0 Fatty (change of) liver, not elsewhere classified; N40.0 Benign prostatic hyperplasia without lower urinary tract symptoms; Z80.9 Family history of malignant neoplasm, unspecified; Z86.73 Personal history of transient ischemic attack (TIA), and cerebral infarction without residual deficits; Z95.5 Presence of coronary angioplasty implant and graft
CPT/HCPCS: 36415; 70450; 71046; 74177; 80048; 80053; 80307; 80329; 82010; 82040; 82962; 83036; 83605; 83690; 83735; 83880; 84100; 84145; 84439; 84443; 84484; 85025; 87324; 93005; 93306; 96361; 96374; 99285; G0378; J1885; J2405; J7070; C9113; G0480; J1815; J2060; J7030

== ENCOUNTER 2018-11-14 18:36 | Emergency (ER) | payer MEDICARE, MEDICAID ==
[~2018-11-14] VITALS: Ht 177.8 cm; Wt 105.0 kg
[~2018-11-14 18:36] MED LIST changes: +ALBU18HF INH; +BUSP10TA PO; +FLUT1AER7 INH; +MIRT15TA4 PO; +NITR0.6T4 SL
[2018-11-14] MEDS ORDERED: ACETAMINOPHEN 500 MG TABLET PO ONE (19:00)
--- NOTE | 2018-11-14 19:00 | NUR ---
PT TO RADIOLOGY
[2018-11-14] MEDS ORDERED: BACITRACIN ZINC OINT 500U/GM, 0.9 GM ONE (19:43)
--- NOTE | 2018-11-14 20:00 | NUR ---
[place] [employer] AT BEDSIDE
[2018-11-14 20:29] VITALS: BP 125/78
== END 2018-11-14 20:31 | disposition home or self-care (01) ==
LOC: ED 19:33
DX: S50.12XA Contusion of left forearm, initial encounter (principal); F41.1 Generalized anxiety disorder; F32.9 Major depressive disorder, single episode, unspecified; E78.5 Hyperlipidemia, unspecified; I11.9 Hypertensive heart disease without heart failure; I25.2 Old myocardial infarction; I25.10 Atherosclerotic heart disease of native coronary artery without angina pectoris; Z90.49 Acquired absence of other specified parts of digestive tract; Z86.73 Personal history of transient ischemic attack (TIA), and cerebral infarction without residual deficits; W01.0XXA Fall on same level from slipping, tripping and stumbling without subsequent striking against object, initial encounter; Y93.89 Activity, other specified; Y92.009 Unspecified place in unspecified non-institutional (private) residence as the place of occurrence of the external cause; Y99.8 Other external cause status
CPT/HCPCS: 99283

== ENCOUNTER 2019-02-04 16:17 | Inpatient (IN) | payer MEDICAID, MEDICARE, OTHER ==
[~2019-02-04] VITALS: Ht 177.8 cm; Wt 104.8 kg
[2019-02-06 14:17] VITALS: BP 127/76
== END 2019-02-06 17:32 | disposition home or self-care (01) | DRG 69 ==
LOC: ED 17:31 → CCU 17:44 → 4WST 02-05 11:26
PROVIDERS: ADMIT Internal Medicine; ATTEND Internal Medicine
DX: G45.9 Transient cerebral ischemic attack, unspecified (principal); E87.1 Hypo-osmolality and hyponatremia; I50.30 Unspecified diastolic (congestive) heart failure; E87.0 Hyperosmolality and hypernatremia; G81.94 Hemiplegia, unspecified affecting left nondominant side; D69.6 Thrombocytopenia, unspecified; E11.9 Type 2 diabetes mellitus without complications; E78.5 Hyperlipidemia, unspecified; E87.5 Hyperkalemia; F32.9 Major depressive disorder, single episode, unspecified; K21.9 Gastro-esophageal reflux disease without esophagitis; N40.0 Benign prostatic hyperplasia without lower urinary tract symptoms; R29.810 Facial weakness; F41.1 Generalized anxiety disorder; F45.9 Somatoform disorder, unspecified; R29.709 NIHSS score 9; Z53.29 Procedure and treatment not carried out because of patient's decision for other reasons; I11.0 Hypertensive heart disease with heart failure; I25.10 Atherosclerotic heart disease of native coronary artery without angina pectoris; I25.2 Old myocardial infarction; Z72.0 Tobacco use; Z80.9 Family history of malignant neoplasm, unspecified; Z86.73 Personal history of transient ischemic attack (TIA), and cerebral infarction without residual deficits; Z90.49 Acquired absence of other specified parts of digestive tract; Z95.5 Presence of coronary angioplasty implant and graft; Z82.5 Family history of asthma and other chronic lower respiratory diseases; Z81.8 Family history of other mental and behavioral disorders; Z80.8 Family history of malignant neoplasm of other organs or systems; Z79.84 Long term (current) use of oral hypoglycemic drugs
CPT/HCPCS: 36415; 70450; 70551; 80048; 80053; 80061; 81003; 82040; 82962; 83036; 84484; 85025; 85610; 85730; 87081; 93005; 93306; 93880; 94640; G0378; J2405; J7613; J7626; J7030

== ENCOUNTER 2019-09-14 19:36 | Emergency (ER) | payer MEDICARE, OTHER ==
[~2019-09-14] VITALS: Ht 177.8 cm; Wt 110.0 kg
[~2019-09-14 19:36] MED LIST changes: +ATOR40TA PO; +FLUO20CA23 PO; +GABA100C PO; +ISOS10TA6 PO; +LOSA50TA14 PO; +MIRT-34 PO; -MIRT15TA4 PO; -NITR0.4T SL; +NITR0.4T41 SL
--- NOTE | 2019-09-14 19:54 | NUR ---
pt biba from [facility]. c/o sob/cp started 1844 while doing nothing. initially hypertensive 196/98 w/ 7/10 throbbing cp. concerend bc hx 5 mis. 1 nitro brought bp down to 130s systolic. pain now 12/25. SR on ecg. a&ox4 gcs 15. occasional cough. lungs ctab. quit drinking 10 months ago. 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 report to aide porras. as
[2019-09-14] MEDS ORDERED: MAALOX/HYOSCYAMINE/LIDOCAINE 45 ML BTL PO ONE (20:00)
[2019-09-14] MEDS ORDERED: SODIUM CHLORIDE FLUSH 10ML SYR IVF ONE (20:00)
[2019-09-14 20:06] LABS: BASOPHILS # (AUTO) 0.02 x10^3/uL (0-0.1); BASOPHILS % (AUTO) 1 % (0-1); EOSINOPHILS # (AUTO) 0.12 x10^3/uL (0-0.4); EOSINOPHILS % (AUTO) 4 % (1-7); LYMPHOCYTES # (AUTO) 0.88 x10^3/uL (1-3.4); LYMPHOCYTES % (AUTO) 25 % (22-44); MD NO; MEAN CORPUSCULAR HEMOGLOBIN 30.4 pg (27.5-34.5); MEAN CORPUSCULAR HGB CONC 34.5 g/dL (33.2-36.2); MEAN CORPUSCULAR VOLUME 88.1 fL (81-97); MEAN PLATELET VOLUME 7.3 fL (7.4-10.4); MONOCYTES # (AUTO) 0.29 x10^3/uL (0.2-0.8); MONOCYTES % (AUTO) 8 % (2-9); NEUTROPHILS # (AUTO) 2.23 x10^3/uL (1.8-6.8); NEUTROPHILS % (AUTO) 63 % (42-75); PLATELET COUNT 180 x10^3/uL (130-400); RED BLOOD COUNT 3.73 x10^6/uL (4.38-5.82); RED CELL DISTRIBUTION WIDTH 13.6 % (9.4-14.8)
[2019-09-14] MEDS ORDERED: METF500T17 PO (20:06)
[2019-09-14] MEDS ORDERED: TOPI25CA3 PO (20:08)
[2019-09-14] MEDS ORDERED: METH4TAB6 PO (20:09)
[2019-09-14] MEDS ORDERED: MAALOX/HYOSCYAMINE/LIDOCAINE 45 ML BTL ONE (20:13)
[2019-09-14 20:15] LABS: ALANINE AMINOTRANSFERASE 23 U/L (12-78); ALBUMIN 3.4 g/dL (3.4-5.0); ANION GAP 8 mmol/L (5-15); CALCIUM 8.8 mg/dL (8.5-10.1); CHLORIDE 113 mmol/L (98-107)
--- NOTE | 2019-09-14 20:15 | NUR ---
PT MEDICATED PER MAR AT THIS TIME. PT DENIES ANY OTHER NEEDS. CALL LIGHT IS WITHIN REACH.
[2019-09-14 20:20] LABS: ALKALINE PHOSPHATASE 64 U/L (45-117); BILIRUBIN,TOTAL 0.6 mg/dL (0.2-1.0); TOTAL PROTEIN 6.2 g/dL (6.4-8.2); TROPONIN I < 0.015 ng/mL (0.000-0.045)
[2019-09-14 21:16] LABS: TROPONIN I < 0.015 ng/mL (0.000-0.045)
[2019-09-14 21:29] VITALS: BP 150/86
--- NOTE | 2019-09-14 21:47 | NUR ---
PT D/C WITH DC/ SUMMARY. ALL QUESTIONS ANSWERED. IV ACCESS D/C WITH TIP INTACT. PT DENIES ANY OTHER NEEDS PERTAINING TO THIS VISIT AND AMBULATES TO REGISTRATION DESK WITH STEADY GAIT FOR D/C HOME.
== END 2019-09-14 21:50 | disposition home or self-care (01) ==
LOC: ED 21:20
DX: R07.89 Other chest pain (principal); I10 Essential (primary) hypertension; E11.9 Type 2 diabetes mellitus without complications; E78.5 Hyperlipidemia, unspecified; I25.2 Old myocardial infarction; E78.00 Pure hypercholesterolemia, unspecified; R94.31 Abnormal electrocardiogram [ECG] [EKG]; Z86.73 Personal history of transient ischemic attack (TIA), and cerebral infarction without residual deficits
CPT/HCPCS: 36415; 71045; 80053; 84484; 85025; 93005; 99285

== ENCOUNTER 2019-10-20 13:52 | Emergency (ER) | payer MEDICARE ==
[~2019-10-20] VITALS: Ht 177.8 cm; Wt 105.0 kg
[~2019-10-20 13:52] MED LIST changes: +METF500T17 PO; +METH4TAB6 PO; +TOPI25CA3 PO
[2019-10-20] MEDS ORDERED: SODIUM CHLORIDE FLUSH 10ML SYR IVF ONE (14:00)
--- NOTE | 2019-10-20 14:03 | NUR ---
Note undone in EDM - 10/20/19 at 1404 by KALEIGH max. report received from ems. pt c/o cp with sob since 1 pm today. hx of mi x 4. pt's aox4. resps even and unlabored. all monitors in place. call light within reach. nsr rate 60-70's on court recording monitor at this time. ekg done by emt. edmd at bedside to evaluate.
--- NOTE | 2019-10-20 14:04 | NUR ---
max. report received from ems. pt c/o cp with sob since 1 pm today. hx of mi x 4. pt's aox4. resps even and unlabored. all monitors in place. call light within reach. nsr rate 60-70's on pompom maker at this time. ekg done by emt. edmd at bedside to evaluate. 0.4mg nitro/4mg zofran/324mg asa/200ml ns given user acceptance tester.
[2019-10-20 14:12] LABS: BASOPHILS # (AUTO) 0.03 x10^3/uL (0-0.1); BASOPHILS % (AUTO) 1 % (0-1); EOSINOPHILS # (AUTO) 0.18 x10^3/uL (0-0.4); EOSINOPHILS % (AUTO) 4 % (1-7); LYMPHOCYTES # (AUTO) 0.87 x10^3/uL (1-3.4); LYMPHOCYTES % (AUTO) 21 % (22-44); MD NO; MEAN CORPUSCULAR HEMOGLOBIN 30.8 pg (27.5-34.5); MEAN CORPUSCULAR HGB CONC 34.1 g/dL (33.2-36.2); MEAN CORPUSCULAR VOLUME 90.3 fL (81-97); MEAN PLATELET VOLUME 7.1 fL (7.4-10.4); MONOCYTES # (AUTO) 0.29 x10^3/uL (0.2-0.8); MONOCYTES % (AUTO) 7 % (2-9); NEUTROPHILS # (AUTO) 2.83 x10^3/uL (1.8-6.8); NEUTROPHILS % (AUTO) 67 % (42-75); PLATELET COUNT 212 x10^3/uL (130-400); RED BLOOD COUNT 3.77 x10^6/uL (4.38-5.82); RED CELL DISTRIBUTION WIDTH 15.9 % (9.4-14.8)
[2019-10-20 14:21] LABS: ALANINE AMINOTRANSFERASE 53 U/L (12-78); ALBUMIN 3.4 g/dL (3.4-5.0); ANION GAP 14 mmol/L (5-15); CALCIUM 7.8 mg/dL (8.5-10.1); CHLORIDE 107 mmol/L (98-107)
[2019-10-20 14:26] LABS: ALKALINE PHOSPHATASE 76 U/L (45-117); BILIRUBIN,TOTAL 0.8 mg/dL (0.2-1.0); CREATININE 1.11 mg/dL (0.7-1.3); TOTAL PROTEIN 6.1 g/dL (6.4-8.2); TROPONIN I < 0.015 ng/mL (0.000-0.045)
[2019-10-20 14:33] LABS: INTERNATIONAL NORMALIZED RATIO 0.94 (0.93-1.1)
--- NOTE | 2019-10-20 14:36 | NUR ---
PT RESTING IN [facility]. PT'S AOX4. RESPS EVEN AND UNLABORED. ALL MONITORS IN PLACE. CALL LIGHT WITHIN REACH.
--- NOTE | 2019-10-20 14:56 | NUR ---
blancket given at this time per request.
--- NOTE | 2019-10-20 15:08 | NUR ---
PT AMB TO BR WITH STEADY GAIT.
[2019-10-20 15:28] VITALS: BP 95/59
--- NOTE | 2019-10-20 15:29 | NUR ---
edmd at bedside to explain all results at this time.
--- NOTE | 2019-10-20 15:46 | NUR ---
Patient given discharge instructions and they have confirmed that they understand the instructions. Patient ambulatory with steady gait.
== END 2019-10-20 15:47 | disposition home or self-care (01) ==
LOC: ED 14:09
DX: R07.89 Other chest pain (principal); I10 Essential (primary) hypertension; E11.9 Type 2 diabetes mellitus without complications; I25.10 Atherosclerotic heart disease of native coronary artery without angina pectoris; I25.2 Old myocardial infarction; E78.5 Hyperlipidemia, unspecified; Z90.49 Acquired absence of other specified parts of digestive tract
CPT/HCPCS: 36415; 71045; 80053; 83690; 84484; 85025; 85610; 85730; 93005; 99285

== ENCOUNTER 2019-11-08 18:34 | Inpatient (IN) | payer MEDICARE ==
[~2019-11-08] VITALS: Ht 177.8 cm; Wt 103.3 kg
[2019-11-08 19:15] LABS: BASOPHILS # (AUTO) 0.02 x10^3/uL (0-0.1); BASOPHILS % (AUTO) 0 % (0-1); EOSINOPHILS # (AUTO) 0.13 x10^3/uL (0-0.4); EOSINOPHILS % (AUTO) 4 % (1-7); LYMPHOCYTES # (AUTO) 0.63 x10^3/uL (1-3.4); LYMPHOCYTES % (AUTO) 18 % (22-44); MD NO; MEAN CORPUSCULAR HGB CONC 34.6 g/dL (33.2-36.2); MEAN CORPUSCULAR VOLUME 95.4 fL (81-97); MEAN PLATELET VOLUME 6.8 fL (7.4-10.4); MONOCYTES # (AUTO) 0.27 x10^3/uL (0.2-0.8); MONOCYTES % (AUTO) 8 % (2-9); NEUTROPHILS # (AUTO) 2.43 x10^3/uL (1.8-6.8); NEUTROPHILS % (AUTO) 70 % (42-75); PLATELET COUNT 130 x10^3/uL (130-400); RED BLOOD COUNT 3.26 x10^6/uL (4.38-5.82); RED CELL DISTRIBUTION WIDTH 18.5 % (9.4-14.8)
--- NOTE | 2019-11-08 19:22 | NUR ---
PT TO ROOM 35 PER PEDIS. PT C/O SOB, DIZZINESS, RASH ON CHEST AND WEAKNESS. PT IS A/O X3, C/O CHEST TIGHTNESS, BUT DENIES ANY HEART PROBLEMS TONIGHT. RN PLACES PATIENT IN GOWN, ATTACHED TO MONITOR, EKG DONE, IV STARTED WITH LAB DRAW, INSTRUCTED ON NEED FOR UA, CALL LIGHT IN REACH, DENIES NEED FOR BLANKET, AND XRAY AT BEDSIDE. PA IN TO ASSESS PATIENT AND PLACE ORDERS. WILL CONTINUE TO MONITOR PATIENT.
[2019-11-08 19:23] LABS: ALANINE AMINOTRANSFERASE 34 U/L (12-78); ALBUMIN 3.2 g/dL (3.4-5.0); ANION GAP 8 mmol/L (5-15); CALCIUM 8.9 mg/dL (8.5-10.1); CHLORIDE 108 mmol/L (98-107); CREATININE 1.26 mg/dL (0.7-1.3)
[2019-11-08 19:28] LABS: ALKALINE PHOSPHATASE 70 U/L (45-117); BILIRUBIN,TOTAL 0.6 mg/dL (0.2-1.0); TOTAL PROTEIN 6.2 g/dL (6.4-8.2); TROPONIN I < 0.015 ng/mL (0.000-0.045)
--- NOTE | 2019-11-08 20:34 | NUR ---
PT STABLE, LYING IN BED WITH NO COMPLAINTS AT THIS TIME. BABY ASA GIVEN WITHOUT DIFF. WILL CONTINUE TO MONITOR.
[2019-11-08] MEDS ORDERED: ASPIRIN 81 MG TABLET CHEW ONE (20:36)
--- NOTE | 2019-11-08 20:50 | NUR ---
REPORT TO MASSIMO GARCIA. PT READY FOR TRANSPORT.
[2019-11-08] MEDS ORDERED: ASPIRIN 81 MG TABLET CHEW PO ONE (21:00)
[2019-11-08 21:15] VITALS: BP 148/64
[2019-11-08] MEDS ORDERED: LOSA100T14 PO (21:29)
[2019-11-08 21:30] VITALS: BP 145/69
[2019-11-08 21:35] VITALS: BP 147/65
[2019-11-08] MEDS ORDERED: LABETALOL 5MG/ML, 20ML IVPush PRN (22:00)
[2019-11-08] MEDS ORDERED: POLYETHYLENE GLYCOL 17 GM PACKET PO PRN (22:00)
[2019-11-08] MEDS ORDERED: ONDANSETRON ODT 4 MG PO PRN (22:00)
[2019-11-08] MEDS ORDERED: BISACODYL 10 MG SUPP PR PRN (22:00)
[2019-11-08] MEDS ORDERED: ACETAMINOPHEN 325 MG TABLET PO PRN (22:00)
[2019-11-08] MEDS ORDERED: DOCUSATE 100 MG CAPSULE PO PRN (22:00)
[2019-11-08] MEDS ORDERED: ENALAPRILAT 1.25 MG/ML, 2ML IVPush PRN (22:00)
[2019-11-08] MEDS ORDERED: ONDANSETRON 2MG/ML, 2ML IVPush PRN (22:00)
[2019-11-08] MEDS: ENOXAPARIN 40 MG/0.4 ML SQ SCH (22:40)
[2019-11-08] MEDS: HYDROCORTISONE CRM 1%, 30GM TP PRN (22:41)
[2019-11-08] MEDS: DIPHENHYDRAMINE 50 MG CAPSULE PO PRN (22:41)
[2019-11-08] MEDS: GUAIFENESIN/DM 200-20MG, 10ML UDC PO PRN (22:41)
[2019-11-08] MEDS: TRAZODONE 100MG TABLET PO PRN (22:41)
[2019-11-08] MEDS: GABAPENTIN 100 MG CAPSULE PO SCH (22:41)
[2019-11-08] MEDS: SODIUM CHLORIDE 0.9% 1,000 ML IV SCH (22:42)
[2019-11-08 23:22] LABS: MICROSCOPIC NOT IND
[2019-11-08 23:25] LABS: CULTURE INDICATED? NO
[2019-11-09 01:11] VITALS: BP 134/75
[2019-11-09 02:08] LABS: TROPONIN I < 0.015 ng/mL (0.000-0.045)
[2019-11-09] MEDS: SODIUM CHLORIDE 0.9% 1,000 ML IV SCH ×2 (08:28→20:01)
[2019-11-09] MEDS: CLOPIDOGREL 75 MG TABLET PO SCH (08:29)
[2019-11-09] MEDS: BUSPIRONE 5 MG TABLET PO SCH ×3 (08:29→20:40)
[2019-11-09] MEDS: ASPIRIN 81 MG TABLET EC PO SCH (08:29)
[2019-11-09] MEDS: FLUOXETINE HCL 20 MG CAPSULE PO SCH (08:29)
[2019-11-09] MEDS: metFORMIN 500 MG TABLET PO SCH ×2 (08:30→20:41)
[2019-11-09] MEDS: CARVEDILOL 12.5 MG TABLET PO SCH ×2 (08:33→20:25)
[2019-11-09] MEDS: LOSARTAN 100 MG TAB PO SCH (08:33)
[2019-11-09 08:36] VITALS: BP 158/74
[2019-11-09 09:04] LABS: % IRON SATURATION 17 % (20-55); ANION GAP 6 mmol/L (5-15); CALCIUM 8.5 mg/dL (8.5-10.1); CHLORIDE 110 mmol/L (98-107); CREATININE 1.05 mg/dL (0.7-1.3); IRON LEVEL 47 mcg/dL (65-175); TOTAL IRON BINDING CAPACITY 281 mcg/dL (250-450)
[2019-11-09 09:09] LABS: TRANSFERRIN 220 mg/dL (200-360); TROPONIN I < 0.015 ng/mL (0.000-0.045)
[2019-11-09] MEDS ORDERED: MAGNESIUM SULFATE PMX 2GM/50ML 50 ML IV ONE (09:30)
[2019-11-09 09:45] LABS: MEAN CORPUSCULAR HEMOGLOBIN 32.1 pg (27.5-34.5); MEAN CORPUSCULAR HGB CONC 33.8 g/dL (33.2-36.2); MEAN CORPUSCULAR VOLUME 95.1 fL (81-97); MEAN PLATELET VOLUME 6.8 fL (7.4-10.4); PLATELET COUNT 98 x10^3/uL (130-400); RED BLOOD COUNT 3.32 x10^6/uL (4.38-5.82); RED CELL DISTRIBUTION WIDTH 18.2 % (9.4-14.8)
[2019-11-09 09:50] LABS: BASOPHILS # (AUTO) 0.01 x10^3/uL (0-0.1); BASOPHILS % (AUTO) 0 % (0-1); EOSINOPHILS # (AUTO) 0.12 x10^3/uL (0-0.4); EOSINOPHILS % (AUTO) 3 % (1-7); LYMPHOCYTES # (AUTO) 0.62 x10^3/uL (1-3.4); LYMPHOCYTES % (AUTO) 17 % (22-44); MD SCAN; MONOCYTES # (AUTO) 0.27 x10^3/uL (0.2-0.8); MONOCYTES % (AUTO) 7 % (2-9); NEUTROPHILS # (AUTO) 2.58 x10^3/uL (1.8-6.8); NEUTROPHILS % (AUTO) 72 % (42-75)
[2019-11-09 12:40] VITALS: BP 146/60
[2019-11-09 20:36] VITALS: BP 164/76
[2019-11-09] MEDS: ATORVASTATIN 40 MG TABLET PO SCH (20:40)
[2019-11-09] MEDS: GUAIFENESIN/DM 200-20MG, 10ML UDC PO PRN (20:40)
[2019-11-09] MEDS: HYDROCORTISONE CRM 1%, 30GM TP PRN (20:40)
[2019-11-09] MEDS: TRAZODONE 100MG TABLET PO PRN (20:41)
[2019-11-09] MEDS: DIPHENHYDRAMINE 50 MG CAPSULE PO PRN (20:41)
[2019-11-09] MEDS: GABAPENTIN 100 MG CAPSULE PO SCH (20:41)
[2019-11-09] MEDS: TAMSULOSIN 0.4 MG CAP.ER.24H PO SCH (20:42)
[2019-11-09 21:30] VITALS: BP 164/70
[2019-11-09] MEDS: ENOXAPARIN 40 MG/0.4 ML SQ SCH (21:48)
[2019-11-09] MEDS ORDERED: ALBU8.5H8 INH (22:16)
[2019-11-10] VITALS (7 sets, daily range): BP systolic 119–172; BP diastolic 67–93
[2019-11-10] MEDS: SODIUM CHLORIDE 0.9% 1,000 ML IV SCH (05:40)
[2019-11-10] MEDS ORDERED: ALBU90AE2 IH (06:02)
[2019-11-10 06:12] LABS: BASOPHILS # (AUTO) 0.01 x10^3/uL (0-0.1); BASOPHILS % (AUTO) 0 % (0-1); EOSINOPHILS % (AUTO) 2 % (1-7); LYMPHOCYTES # (AUTO) 0.59 x10^3/uL (1-3.4); LYMPHOCYTES % (AUTO) 14 % (22-44); MD NO; MEAN CORPUSCULAR HEMOGLOBIN 32.2 pg (27.5-34.5); MEAN CORPUSCULAR HGB CONC 33.9 g/dL (33.2-36.2); MEAN CORPUSCULAR VOLUME 95.2 fL (81-97); MONOCYTES # (AUTO) 0.35 x10^3/uL (0.2-0.8); MONOCYTES % (AUTO) 9 % (2-9); NEUTROPHILS # (AUTO) 3.05 x10^3/uL (1.8-6.8); NEUTROPHILS % (AUTO) 75 % (42-75); PLATELET COUNT 104 x10^3/uL (130-400); RED BLOOD COUNT 3.22 x10^6/uL (4.38-5.82); RED CELL DISTRIBUTION WIDTH 17.9 % (9.4-14.8)
[2019-11-10 06:19] LABS: ANION GAP 5 mmol/L (5-15); CALCIUM 8.5 mg/dL (8.5-10.1); CHLORIDE 111 mmol/L (98-107); CREATININE 1.03 mg/dL (0.7-1.3)
[2019-11-10] MEDS ORDERED: MAGNESIUM SULFATE PMX 2GM/50ML 50 ML IV ONE (09:00)
[2019-11-10] MEDS: metFORMIN 500 MG TABLET PO SCH ×2 (09:14→22:03)
[2019-11-10] MEDS: LOSARTAN 100 MG TAB PO SCH (09:14)
[2019-11-10] MEDS: BUSPIRONE 5 MG TABLET PO SCH ×3 (09:15→22:03)
[2019-11-10] MEDS: FLUOXETINE HCL 20 MG CAPSULE PO SCH (09:15)
[2019-11-10] MEDS: CLOPIDOGREL 75 MG TABLET PO SCH (09:15)
[2019-11-10] MEDS: CARVEDILOL 12.5 MG TABLET PO SCH ×2 (09:15→22:03)
[2019-11-10] MEDS: ASPIRIN 81 MG TABLET EC PO SCH (09:15)
[2019-11-10] MEDS: NICOTINE 21 MG/24 HR PATCH.TD24 TD SCH (09:15)
[2019-11-10] MEDS: NITROGLYCERIN 0.4 MG BOTTLE (25 TABS) SL PRN ×2 (14:07→14:12)
[2019-11-10] MEDS ORDERED: MAALOX/HYOSCYAMINE/LIDOCAINE 45 ML BTL PO ONE ×2 (15:00→19:30)
[2019-11-10] MEDS: GABAPENTIN 100 MG CAPSULE PO SCH (22:03)
[2019-11-10] MEDS: ATORVASTATIN 40 MG TABLET PO SCH (22:03)
[2019-11-10] MEDS: TAMSULOSIN 0.4 MG CAP.ER.24H PO SCH (22:03)
[2019-11-10] MEDS: FAMOTIDINE 20 MG TABLET PO SCH (22:03)
[2019-11-10] MEDS: ENOXAPARIN 40 MG/0.4 ML SQ SCH (22:04)
[2019-11-10] MEDS: TRAZODONE 100MG TABLET PO PRN (22:08)
[2019-11-11 01:58] VITALS: BP 148/80
[2019-11-11 07:06] VITALS: BP 168/84
[2019-11-11] MEDS ORDERED: MAALOX/HYOSCYAMINE/LIDOCAINE 45 ML BTL PO PRN (08:30)
[2019-11-11] MEDS: LOSARTAN 100 MG TAB PO SCH (09:00)
[2019-11-11] MEDS: ASPIRIN 81 MG TABLET EC PO SCH (09:14)
[2019-11-11] MEDS: CLOPIDOGREL 75 MG TABLET PO SCH (09:14)
[2019-11-11] MEDS: FLUOXETINE HCL 20 MG CAPSULE PO SCH (09:14)
[2019-11-11] MEDS: TAMSULOSIN 0.4 MG CAP.ER.24H PO SCH (09:14)
[2019-11-11] MEDS: metFORMIN 500 MG TABLET PO SCH ×2 (09:14→22:15)
[2019-11-11] MEDS: BUSPIRONE 5 MG TABLET PO SCH ×3 (09:14→22:15)
[2019-11-11] MEDS: CARVEDILOL 12.5 MG TABLET PO SCH ×2 (09:14→22:15)
[2019-11-11] MEDS: NICOTINE 21 MG/24 HR PATCH.TD24 TD SCH (09:15)
[2019-11-11] MEDS: FAMOTIDINE 20 MG TABLET PO SCH ×2 (09:15→22:15)
[2019-11-11 16:10] VITALS: BP 150/78
[2019-11-11] MEDS: LORazepam 1MG TABLET PO PRN (17:44)
[2019-11-11 21:30] VITALS: BP 169/71
[2019-11-11] MEDS: ENOXAPARIN 40 MG/0.4 ML SQ SCH (22:14)
[2019-11-11] MEDS: ATORVASTATIN 40 MG TABLET PO SCH (22:15)
[2019-11-11] MEDS: GABAPENTIN 100 MG CAPSULE PO SCH (22:15)
[2019-11-12 01:11] VITALS: BP 176/67
[2019-11-12] MEDS: LORazepam 1MG TABLET PO PRN ×3 (01:30→15:00)
[2019-11-12] MEDS: HYDROCORTISONE CRM 1%, 30GM TP PRN (01:37)
[2019-11-12 02:02] VITALS: BP 174/79
[2019-11-12 02:38] VITALS: BP 157/93
[2019-11-12 07:06] VITALS: BP 177/78
[2019-11-12 07:46] LABS: BASOPHILS # (AUTO) 0.01 x10^3/uL (0-0.1); BASOPHILS % (AUTO) 0 % (0-1); EOSINOPHILS # (AUTO) 0.16 x10^3/uL (0-0.4); EOSINOPHILS % (AUTO) 5 % (1-7); LYMPHOCYTES # (AUTO) 0.61 x10^3/uL (1-3.4); LYMPHOCYTES % (AUTO) 18 % (22-44); MD NO; MEAN CORPUSCULAR HEMOGLOBIN 32.6 pg (27.5-34.5); MEAN CORPUSCULAR HGB CONC 34.3 g/dL (33.2-36.2); MEAN PLATELET VOLUME 6.8 fL (7.4-10.4); MONOCYTES # (AUTO) 0.45 x10^3/uL (0.2-0.8); MONOCYTES % (AUTO) 13 % (2-9); NEUTROPHILS # (AUTO) 2.14 x10^3/uL (1.8-6.8); NEUTROPHILS % (AUTO) 64 % (42-75); PLATELET COUNT 140 x10^3/uL (130-400); RED BLOOD COUNT 3.52 x10^6/uL (4.38-5.82); RED CELL DISTRIBUTION WIDTH 17.4 % (9.4-14.8)
[2019-11-12 07:52] LABS: ALBUMIN 2.9 g/dL (3.4-5.0); ANION GAP 8 mmol/L (5-15); CALCIUM 9.1 mg/dL (8.5-10.1); CHLORIDE 109 mmol/L (98-107); CREATININE 1.09 mg/dL (0.7-1.3)
[2019-11-12 07:54] LABS: ALANINE AMINOTRANSFERASE 22 U/L (12-78); ALKALINE PHOSPHATASE 78 U/L (45-117); BILIRUBIN,TOTAL 0.5 mg/dL (0.2-1.0); TOTAL PROTEIN 6.4 g/dL (6.4-8.2)
[2019-11-12] MEDS: LOSARTAN 100 MG TAB PO SCH (09:16)
[2019-11-12] MEDS: TAMSULOSIN 0.4 MG CAP.ER.24H PO SCH (09:17)
[2019-11-12] MEDS: CLOPIDOGREL 75 MG TABLET PO SCH (09:17)
[2019-11-12] MEDS: FAMOTIDINE 20 MG TABLET PO SCH (09:17)
[2019-11-12] MEDS: CARVEDILOL 12.5 MG TABLET PO SCH (09:17)
[2019-11-12] MEDS: metFORMIN 500 MG TABLET PO SCH (09:17)
[2019-11-12] MEDS: BUSPIRONE 5 MG TABLET PO SCH (09:18)
[2019-11-12] MEDS: ASPIRIN 81 MG TABLET EC PO SCH (09:18)
[2019-11-12] MEDS: FLUOXETINE HCL 20 MG CAPSULE PO SCH (09:18)
[2019-11-12] MEDS: NICOTINE 21 MG/24 HR PATCH.TD24 TD SCH (09:19)
[2019-11-12] MEDS ORDERED: FAMO20TA7 PO (11:39)
[2019-11-12] MEDS ORDERED: Maalox/Hyoscyamine/Lidocaine PO (11:39)
[2019-11-12 13:39] VITALS: BP 174/92
[2019-11-12 15:29] VITALS: BP 151/53
== END 2019-11-12 15:57 | disposition home or self-care (01) | DRG 392 ==
LOC: ED 19:04 → EDIP 20:21 → 4NW 21:05 → 5SO 11-10 10:04 → 3N 11-12 01:25
PROVIDERS: ATTEND Internal Medicine
DX: K21.9 Gastro-esophageal reflux disease without esophagitis (principal); I47.2 Ventricular tachycardia; B34.9 Viral infection, unspecified; D64.9 Anemia, unspecified; E11.9 Type 2 diabetes mellitus without complications; E66.9 Obesity, unspecified; Z68.32 Body mass index [BMI] 32.0-32.9, adult; E78.5 Hyperlipidemia, unspecified; F17.200 Nicotine dependence, unspecified, uncomplicated; G40.909 Epilepsy, unspecified, not intractable, without status epilepticus; I10 Essential (primary) hypertension; I25.119 Atherosclerotic heart disease of native coronary artery with unspecified angina pectoris; I25.2 Old myocardial infarction; J45.909 Unspecified asthma, uncomplicated; K29.70 Gastritis, unspecified, without bleeding; Z86.73 Personal history of transient ischemic attack (TIA), and cerebral infarction without residual deficits; Z95.5 Presence of coronary angioplasty implant and graft; Z20.828 Contact with and (suspected) exposure to other viral communicable diseases
CPT/HCPCS: 36415; 71045; 80048; 80053; 81003; 82728; 83036; 83540; 83550; 83735; 83880; 84100; 84145; 84443; 84466; 84484; 85025; 93005; 93306; G0378; J1650; J3475; J7030; U0001